=== PATIENT | male | born 1975 ===

== ENCOUNTER 2020-10-01 20:52 | Emergency (ER) | payer BC ==
[~2020-10-01] VITALS: Ht 195.6 cm; Wt 97.5 kg
[2020-10-01] MEDS ORDERED: FLOVENT HFA12 GM INH (21:07)
[2020-10-01] MEDS ORDERED: VENTOLIN HFA18 GM INH (21:08)
[2020-10-01] MEDS ORDERED: PREVACID15 M1 PO (21:08)
[2020-10-01] MEDS ORDERED: HYDROCODON-ACE1 EA10 PO (21:58)
== END 2020-10-01 22:10 | disposition home or self-care (01) ==
LOC: ED 20:52
DX: S43.102A Unspecified dislocation of left acromioclavicular joint, initial encounter (principal); K21.9 Gastro-esophageal reflux disease without esophagitis; J45.909 Unspecified asthma, uncomplicated; W17.89XA Other fall from one level to another, initial encounter; Z88.6 Allergy status to analgesic agent; Z79.899 Other long term (current) drug therapy
CPT/HCPCS: 73030; 99283-25